=== PATIENT | male | born 1960 ===

== ENCOUNTER 2017-04-04 06:08 | Day surgery (SDC) | payer MEDICARE, OTHER ==
[2017-04-04] VITALS (11 sets, daily range): BP systolic 95–128; BP diastolic 53–73
[~2017-04-04] VITALS: Ht 185.4 cm; Wt 86.2 kg
[2017-04-04] MEDS ORDERED: NASONEX17 GM NASAL (07:23)
[2017-04-04] MEDS ORDERED: LISINOPRIL2.5 MG ORAL (07:23)
[2017-04-04] MEDS ORDERED: OXANDROLONE10 MG PO (07:23)
[2017-04-04] MEDS ORDERED: GENVOYA TABLET1 EACH PO (07:23)
[2017-04-04] MEDS ORDERED: SEROSTIM6 M1 SQ (07:23)
[2017-04-04] MEDS ORDERED: TESTOSTERO200 MG/1 M IM (07:23)
[2017-04-04] MEDS ORDERED: TAMOXIFEN CITRA20 MG ORAL (07:23)
[2017-04-04] MEDS ORDERED: PREVACID30 MG ORAL (07:23)
[2017-04-04] MEDS ORDERED: ACYCLOVIR400 MG ORAL (07:23)
[2017-04-04] MEDS ORDERED: ATORVASTATIN CA20 MG ORAL (07:23)
[2017-04-04] MEDS ORDERED: TESTOSTERO100 MG/1 M IM (07:23)
[2017-04-04] MEDS ORDERED: Bupivacaine w/Epi 0.5% 30ml Vial INJ ONE (07:54)
[2017-04-04] MEDS ORDERED: fentaNYL 100 mcg/2 mL IV ONE (08:00)
[2017-04-04] MEDS ORDERED: LR 1000ml ONE (08:00)
[2017-04-04] MEDS ORDERED: Metoclopramide 10mg/2ml Inj ONE (08:00)
[2017-04-04] MEDS ORDERED: Midazolam 2mg/2ml Inj ONE (08:00)
[2017-04-04] MEDS ORDERED: Sterile Water Irrig 1000ml IRRIG ONE (08:00)
[2017-04-04] MEDS ORDERED: Propofol 10mg/ml 20ml IV ONE (08:00)
[2017-04-04] MEDS ORDERED: ePHEDrine 50mg/ml Inj ONE (08:00)
[2017-04-04] MEDS ORDERED: NS Irrig 1000ml ONE (08:00)
[2017-04-04] MEDS ORDERED: Lidocaine 1% MPF 10mg/ml 5ml ONE (08:00)
[2017-04-04] MEDS ORDERED: Morphine Sulfate 10mg/ml Inj ONE (08:00)
--- NOTE | 2017-04-04 08:00 | Pre-Procedure Note/Attestation ---
Pre-Procedure Note/Attestation Complete Prior to Procedure Planned Procedure: right Procedure Narrative: repair right inguinal hernia Indications for Procedure Pre-Operative Diagnosis: right inguinal hernia Attestation I attest that I discussed the nature of the procedure; its benefits; risks and complications; and alternatives (and the risks and benefits of such alternatives ), prior to the procedure, with the patient (or the patient's legal public relations representative). I attest that, if there was a reasonable possibility of needing a blood transfusion, the patient (or the patient's legal public relations representative) was given the [facility] standardized written summary, pursuant to the Thomas Mad[employer] Blood Safety Act ([place] Health and Safety Code # 1645, as amended). I attest that I re-evaluated the patient just prior to the surgery and that there has been no change in the patient's H&P, except as documented below: PANCHITO NORRIS Apr 04, 2017 08:00
[2017-04-04] MEDS ORDERED: Metoclopramide 10mg/2ml Inj IVP PRN (09:00)
[2017-04-04] MEDS ORDERED: fentaNYL 100 mcg/2 mL IV PRN (09:00)
[2017-04-04] MEDS ORDERED: Meperidine 25mg/0.5ml Inj (FOR RIGORS ONLY) IV PRN (09:00)
--- NOTE | 2017-04-04 09:36 | Brief Operative Note ---
Immediate Post Operative Note Operative Note Pre-op Diagnosis: right inguinal hernia Procedure: repair of right inguinal hernia, right inguinal lymph node biopsy Post-op Diagnosis: same Findings: other - small direct inguinal hernia, large right inguinal lymph node ,lipoma of cord Surgeon: rehan Anesthesiologist: Cheryl Anesthesia: general Specimen: yes - lymoh nodeand lipomas of cord Complications: none Condition: stable Estimated Blood Loss: minimal Drains: none Implant(s) used?: Yes - prolite mesh PANCHITO NORRIS Apr 04, 2017 09:36
--- NOTE | 2017-04-04 09:40 | Immediate Post-Op Evaluation ---
Immediate Post-Op Evalulation Immediate Post-Op Evalulation Procedure: right inguinal hernia repair Date of Evaluation: Apr 04, 2017 Time of Evaluation: 09:30 IV Fluids: 500 Blood Pressure Systolic: 95 Blood Pressure Diastolic: 50 Pulse Rate: 76 Respiratory Rate: 14 O2 Sat by Pulse Oximetry: 100 Temperature (Fahrenheit): 97.9 Nausea: No Vomiting: No Complications none Patient Status: awake, reacts, patent Hydration Status: adequate Drug: ancef Given Within 1 Hr of Incision: Yes Time Given: 08:20 JANETTE CONNER CRNA Apr 04, 2017 09:40
--- NOTE | 2017-04-04 09:42 | Anethesia Preoperative Eval ---
Anesthesia Pre-op PMH/ROS General Date of Evaluation: Apr 04, 2017 Time of Evaluation: 08:00 Anesthesiologist: ron ASA Score: ASA 3 Mallampati Score Class I : Soft palate, uvula, fauces, pillars visible Class II: Soft palate, uvula, fauces visible Class III: Soft palate, base of uvula visible Class IV: Only hard plate visible Mallampati Classification: Class III Surgeon: rehan Diagnosis: right inguinal hernia Surgical Procedure: inguinal hernia repair Anesthesia History: none Family History: no anesthesia problems Allergies: Coded Allergies: AZITHROMYCIN (Verified Allergy, Unknown, 04/03/17) PENICILLINS (Verified Allergy, Unknown, 04/03/17) rash Past Medical History Cardiovascular: Reports: HTN Pulmonary: Denies: COPD, TYRESE, asthma, other Gastrointestinal/Genitourinary: Denies: CRI, ESRD, GERD, other Neurologic/Psychiatric: Denies: CVA, TIA, dementia, depression/anxiety, other Endocrine: Denies: DM, hypothyroidism, other, steroids HEENT: Denies: EMMONAK (L), EMMONAK (R), cataract (L), cataract (R), glaucoma, other Hematology/Immune: Reports: other - HIV PSxH Narrative: tonsillectomy Anesthesia Pre-op Phys. Exam Physician Exam Last Vital Signs Date Time Temp Pulse Resp B/P Pulse Ox O2 Delivery O2 Flow Rate FiO2 04/04/17 09:30 64 16 105/64 99 Simple Mask 6.0 04/04/17 09:25 97.9 Constitutional: NAD Neurologic: CN 2-12 intact Cardiovascular: RRR Respiratory: CTA Gastrointestinal: S/NT/ND Airway Exam Mallampati Score: Class III MO: full ROM: full Dentures: no lower, no upper Anesthesia Pre-op A/P Studies Pre-op Studies: EKG - sr Risk Assessment & Plan Plan: general lma Status Change Before Surgery: No Pre-Antibiotics Drug: ancef 2 g Given Within 1 Hr of Incision: Yes Time Given: 08:20 JANETTE CONNER CRNA Apr 04, 2017 09:42
--- NOTE | 2017-04-04 09:47 | 48 Hour Post Anesthesia Eval ---
Post Anesthesia Evaluation Procedure: right inguinal hernia repair Date of Evaluation: Apr 04, 2017 Time of Evaluation: 09:46 Blood Pressure Systolic: 105 0: 45 Pulse Rate: 70 Respiratory Rate: 14 O2 Sat by Pulse Oximetry: 100 Airway: patent Vomiting: No Hydration Status: adequate Cardiopulmonary Status: stable Mental Status/LOC: patient returned to baseline Post-Anesthesia Complications: none Follow-up care needed: N/A JANETTE CONNER CRNA Apr 04, 2017 09:47
[2017-04-04] MEDS ORDERED: Norco 5mg/325mg tab ORAL PRN (15:01)
[2017-04-04] MEDS ORDERED: Tylenol #3 tab (300mg/30mg) ORAL PRN (15:01)
[2017-04-04] MEDS ORDERED: D5 1/2NS 1,000 ML IV SCH (15:01)
[2017-04-04] MEDS ORDERED: HYDROmorphone 1mg/ml Carpuject SUBQ PRN (15:01)
--- NOTE | 2017-04-08 22:45 | Operative Note - Dictated ---
DATE OF OPERATION: 04/04/2017 SURGEON: Tommy Kaur M.D. PAPER SALES MANAGER: None. ANESTHESIOLOGIST: Barb Santoyo CRNA. ANESTHESIA: General. PREOPERATIVE DIAGNOSIS: Right inguinal hernia. POSTOPERATIVE DIAGNOSIS: Right inguinal hernia with some enlarged right inguinal lymph nodes. NAME OF OPERATIONS: 1. Repair of right inguinal hernia. 2. Right inguinal lymph node biopsy. FINDINGS AND INDICATIONS: The patient is a very pleasant 56-year-old male with a history of progressively enlarging right inguinal hernia bulge with some pain and tenderness. The patient came to see me, I examined him, and found him to have this right inguinal hernia bulge, which is reducible. At surgery indeed, a direct inguinal hernia was found with some lipoma of the cord, as well as some enlarged right groin lymph nodes, which were biopsied because they were approximately 1.5 to 2 cm in diameter and firm and feculent. The procedure was done uneventfully. FINDINGS: The findings at surgery was that of a direct inguinal hernia with a weak pelvic floor and lipoma of the cord. The inguinal hernia was also biopsied. DESCRIPTION OF PROCEDURE: With the patient lying in the supine position on the operating table, under general anesthesia with the entire right groin and lower abdominal regions prepped and draped in usual sterile fashion with Betadine, an oblique incision was carried out in the right groin following skin lines, subcutaneous tissues were divided, the external oblique aponeurosis was identified and opened in the direction of its fibers. The ilioinguinal nerve was identified and left intact. The cord was isolated and skeletonized with no obvious indirect inguinal hernia sac found, but some lipomas which were removed. The base was ligated with 3-0 Vicryl ties. The direct inguinal hernia was then imbricated with 2-0 Vicryl material and then the pelvic floor was reinforced by approximating the shelving edge of the inguinal ligament to the combined aponeurosis of the internal oblique and transversus abdominis muscles using 2-0 nylon suture in a continuous fashion, recreating a nice pelvic floor, a slit was made on the lateral aspect of the mesh to allow the cord structures to go through, and the Prolene suture was snugged and ligated. The area was irrigated, hemostasis was adequate, the obvious [id number] sized adenopathy was found in the right groin when I was looking for to make sure there was no obvious femoral hernia, and some of these lymph nodes were biopsied by ligating the base with 3-0 and 2-0 Vicryl ties. The specimens were sent to pathology after having dissected free and removed and no bleeding was observed. The area was irrigated with normal saline. Hemostasis was adequate. The subcutaneous tissues were approximated with 3-0 Vicryl sutured and the skin with 4-0 Vicryl subcuticular sutures and Steri-Strips. Marcaine 0.5% with epinephrine 30 mL was injected for long-acting local anesthetic. The patient tolerated the procedure well. Estimated blood loss was less than 5 mL. Sponge and needle counts were correct. He went to the recovery room in stable condition. Tommy Kaur M.D. DR: BRYN JOB#: [id number] CC:
== END 2017-04-04 13:20 | disposition home or self-care (01) ==
LOC: SUR 06:08
DX: K40.90 Unilateral inguinal hernia, without obstruction or gangrene, not specified as recurrent (principal); D17.6 Benign lipomatous neoplasm of spermatic cord; R59.0 Localized enlarged lymph nodes; I10 Essential (primary) hypertension; I42.9 Cardiomyopathy, unspecified; F41.9 Anxiety disorder, unspecified; G62.9 Polyneuropathy, unspecified; R53.82 Chronic fatigue, unspecified; R64 Cachexia; R19.7 Diarrhea, unspecified; R63.0 Anorexia; N62 Hypertrophy of breast; J32.9 Chronic sinusitis, unspecified; Z88.3 Allergy status to other anti-infective agents; Z88.0 Allergy status to penicillin
CPT/HCPCS: 38500; 49505; C1781; J0690; J2250; J2270; J2405; J2704; J2765; J3010; J7120; 94003; 94150